=== PATIENT | male | born 1980 | race Caucasian/White ===

== ENCOUNTER → 2019-04-06 | Outpatient (CLI) | payer OTHER ==
--- NOTE | 2019-04-06 11:20 | PCVCIMAG ---
APPROVED REPORT Imaging Protocol: Rest Tc-99m/Stress Tc-99m 1 day Study performed: 04/06/2019 08:35:30 Indication: Dyspnea, Chest Pain Patient Location: Out-Patient Stress Nurse: Priscila Brown RN, Marlys Roberto RN [place] Tech:Ramón DiehlMARSHA santoroMT Ht: 5 ft 8 in Wt: 140 lbs BSA: 1.76 m2 HR: 80 bpm BP: 133/84 mmHg BMI: 21.2 Rhythm: Sinus Rhythm Medical History Medical History: HLP, Family Hx CAD Medications: ASA, COQ10 Allergies: Crestor Pretest Chest Pain Characteristics: History of exertional chest pain - midsternal, resolves with rest Resting Data Rest SPECT myocardial perfusion imaging was performed in supine position 45 minutes following the intravenous injection of 11.0 mCi of Tc-99m Sestamibi. Time of rest injection: 834 Date: 04/06/2019 Administration Route: IV Administration Site: Right AC Exercise Stress At peak stress, the patient was injected intravenously with 33.5mCi of Tc-99m Sestamibi. Time of stress injection: 949 Date: 04/06/2019 Administration Route: IV Administration Site: Right AC Patient continued to exercise for 1 minute(s). Gated Stress SPECT was performed 45 minutes after stress injection. The images were gated to evaluate regional wall motion and calculate left ventricular ejection fraction. Stress Test Details Stress Test: Exercise stress testing was performed using a Robin protocol. HRMax Heart Rate (APMHR): 179 bpm Resting HR: 80 bpmTarget HR (85% APMHR): 152 bpm Max HR Achieved: 176 bpm % of APMHR: 98 Recovery HR: 108 bpm HR response to stress: Normal HR response to stress BP Resting BP: 133/84 mmHg Max BP: 150/78 mmHg Recovery BP: 127/67 mmHg BP response to stress: Normal blood pressure response to stress. ECG Resting ECG: Sinus Rhythm Stress ECG: Sinus Tachycardia, nonspecific ST-T changes ST Change: Horizontal ST depression Maximum ST Deviation: 1.5 mm Arrhythmia: VPC's Recovery ECG: Sinus Tachycardia, nonspecific ST-T changes Clinical Reason for Termination: Maximal effort, Fatigue, Dyspnea Stress Symptoms: Dyspnea, Chest pain noted in recovery period -12/16. Resolved momentarily Exercise duration: 8 min 55 sec Exercise capacity: 10.10 METs Overall Exercise Capacity for Age: Average Scale: Sedentary Angina Score: Non-Limiting Symptoms resolved during recovery. Stress ECG Conclusion 1. Subjectively abnormal chest discomfort being developed post exercise 2. Elective cartographic a negative for ischemia 3. Average functional capacity Hardy Treadmill Score is -3.5 which is Moderate risk. Study Data Post stress, the left ventricular ejection was 89%.. SSS: 0 SRS: 0 SDS: 0 TID = 0.67. Perfusion There is a small area of mildly reduced uptake in the basal and mid segment of the inferior wall which is seen on the stress images as well as the resting images. This area thickens and moves normally and is most consistent with attenuation artifact. Wall Motion Normal left ventricular wall motion. Nuclear Conclusion ECG Findings: negative for ischemia Clinical Findings: positive for ischemia Nuclear Findings: negative for ischemia Exercise Capacity: average Left Ventricular Function: normal 1. Low risk study 2. Post stress left ventricular ejection fraction of 89% with normal contractility and no wall motion abnormalities Interpreted by: Patricia Reed MD Electronically Approved: 04/06/2019 11:20:01 <Conclusion> 1. Subjectively abnormal chest discomfort being developed post exercise 2. Elective cartographic a negative for ischemia 3. Average functional capacity
--- NOTE | 2019-04-06 11:58 | PCVCIMAG ---
APPROVED REPORT Study performed: 04/06/2019 07:47:13 EXAM: Comprehensive 2D, Doppler, and color-flow Echocardiogram Patient Location: Echo lab Status: routine BSA: 1.76 HR: 73 bpmBP: 130/82 mmHg Rhythm: NSR Other Information Study Quality: Adequate Risk Factors: Cardiac Risk Factors: Hyperlipidemia Indications Dyspnea Chest Pain 2D Dimensions IVSd: 7.49 (7-11mm) LVDd: 37.01 mm PWd: 7.16 (7-11mm)Ascending Ao: 24.72 (22-36mm) LVDs: 28.10 (25-40mm) Left Atrium: 34.85 (27-40mm) Aortic Root: 23.68 mm LV Single Plane 4CH: 64.97 % LV Single Plane 2CH: 62.07 % Biplane EF: 62.5 % Volumes Left Atrial Volume (Systole) Single Plane 4CH: 28.80 mLSingle Plane 2CH: 33.80 mL LA ESV Index: 20.00 mL/m2 Aortic Valve AoV Peak Stu.: 1.22 m/s AO Peak Gr.: 5.93 mmHgLVOT Max P.98 mmHg LVOT Max V: 0.86 m/s Mitral Valve E/A Ratio: 1.8 MV Decel. Time: 263.71 ms MV E Max Stu.: 0.66 m/s MV A Stu.: 0.36 m/s IVRT: 100.35 ms Pulmonary Valve PV Peak Stu.: 1.07 m/sPV Peak Gr.: 4.56 mmHg Pulmonary Vein P Vein S: 0.31 m/sP Vein A: 0.36 m/s P Vein D: 0.47 m/sP Vein A Dur.: 110.7 msec P Vein S/D Ratio: 0.66 Tricuspid Valve TR Peak Stu.: 2.29 m/s TR Peak Gr.: 20.94 mmHg Left Ventricle The left ventricle is normal size. There is normal LV segmental wall motion. There is normal left ventricular wall thickness. Left ventricular systolic function is normal. The left ventricular ejection fraction is within the normal range. LVEF is 60-65%. The left ventricular diastolic function is normal. Right Ventricle The right ventricle is normal size. The right ventricular systolic function is normal. Atria The left atrium size is normal. The right atrium size is normal. Aortic Valve The aortic valve is normal in structure. No aortic regurgitation is present. There is no aortic valvular stenosis. Mitral Valve The mitral valve is normal in structure. Trace mitral regurgitation. No evidence of mitral valve stenosis. Tricuspid Valve The tricuspid valve is normal in structure. Trace tricuspid regurgitation with PAP of 28 mmHg. Pulmonic Valve The pulmonary valve is normal in structure. Mild pulmonic regurgitation. Great Vessels The aortic root is normal in size. IVC is normal in size and collapses >50% with inspiration. Pericardium There is no pericardial effusion. There is no pleural effusion. <Conclusion> The left ventricle is normal size. LVEF is 60-65%. The aortic valve is normal in structure. The mitral valve is normal in structure. Trace mitral regurgitation. The tricuspid valve is normal in structure. Trace tricuspid regurgitation with PAP of 28 mmHg. The pulmonary valve is normal in structure. Mild pulmonic regurgitation. There is no pericardial effusion.
== END | disposition home or self-care (01) ==
LOC: PCVCIMAG 08:03
PROVIDERS: ATTEND Internal Medicine
DX: I37.1 Nonrheumatic pulmonary valve insufficiency (principal); E78.5 Hyperlipidemia, unspecified; Z82.49 Family history of ischemic heart disease and other diseases of the circulatory system; Z83.3 Family history of diabetes mellitus; Z79.82 Long term (current) use of aspirin; Z79.899 Other long term (current) drug therapy
CPT/HCPCS: 78452; 93017; 93306; A9500